=== PATIENT | male | born 1955 | race Caucasian/White ===

== ENCOUNTER 2018-01-23 01:53 | Inpatient (IN) | payer OTHER ==
[~2018-01-23] VITALS: Ht 182.9 cm; Wt 105.3 kg
[~2018-01-23 01:53] MED LIST: ALEVE220 MG PO; CIPROFLOXACIN500 M1 PO; FLOMAX PO; LEVAQUIN 500 M500 M2 PO
[2018-01-23] MEDS ORDERED: ALEVE220 MG PO (02:00)
[2018-01-23 02:17] LABS: ABSOLUTE BASOPHILS 0.1 thou/uL (0.0-0.2); ABSOLUTE EOSINOPHILS 0.5 thou/uL (0.0-0.7); ABSOLUTE LYMPHOCYTES 1.9 thou/uL (0.8-5.3); ABSOLUTE MONOCYTES 1.5 thou/uL (0.0-1.2); ABSOLUTE NEUTROPHILS 12.6 thou/uL (1.6-8.1); BASOPHILS 0.5 %; HEMATOCRIT 44.1 % (42.0-52.0); HEMOGLOBIN 14.6 gm/dL (14.0-18.0); LYMPHOCYTES 11.6 %; MCH 28.5 pg (26.0-34.0); MCHC 33.1 g/dL (28.0-37.0); MCV 86.1 fL (80.0-100.0); MONOCYTES 9.2 %; MPV 7.6 fl. (7.2-11.1); NUCLEATED RBCS 0 /100WBC; PLATELET COUNT* 405 thou/uL (150-400); POLYS 75.7 %; RBC 5.13 mil/uL (4.50-6.00); RDW-CV 17.1 % (10.5-14.5); WBC 16.6 thou/uL (4.0-11.0)
[2018-01-23 02:20] LABS: ANION GAP 8 mmol/L (7-16); BUN 20 mg/dL (7-18); CALCIUM 8.6 mg/dL (8.5-10.1); CHLORIDE 102 mmol/L (98-107); CO2 25 mmol/L (21-32); CREATININE 1.4 mg/dL (0.6-1.3); GLUCOSE 128 mg/dL (70-99); POTASSIUM 4.1 mmol/L (3.5-5.1); SODIUM 135 mmol/L (136-145)
[2018-01-23 02:31] LABS: APTT 37.8 Seconds (25.0-31.3); PROTIME 9.9 Seconds (9.20-11.50)
[2018-01-23 02:39] LABS: ALBUMIN 3.3 g/dL (3.4-5.0); ALKALINE PHOSPHATASE 108 U/L (46-116); CK-MB MASS 0.9 ng/mL (<0.5-3.6); LIPASE 158 U/L (73-393); MAGNESIUM 1.7 mg/dL (1.8-2.4); NT-PRO BRAIN NAT PEPTIDE 1700 pg/mL (<300); SGOT 14 U/L (15-37); SGPT 16 U/L (30-65); TOTAL BILIRUBIN 0.4 mg/dL (<0.1-1.0); TOTAL PROTEIN 7.9 g/dL (6.4-8.2); TROPONIN-I LEVEL <0.06 ng/mL (<0.06)
[2018-01-23 04:00] VITALS: BP 124/70
[2018-01-23 04:12] VITALS: BP 145/91
[2018-01-23 07:35] LABS: CHOLESTEROL 221 mg/dL (<200); HDL CHOLESTEROL 41 mg/dL (>40); LDL CHOLESTEROL 149 mg/dL (<100); TC:HDL 5.4 Ratio (Not establshd); TRIGLYCERIDE 155 mg/dL (<150); VLDL 31 mg/dL (<40)
[2018-01-23 07:45] LABS: SERUM ASSESSMENT Clear
[2018-01-23 12:00] VITALS: BP 133/69
--- NOTE | 2018-01-23 15:01 | EKG ---
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: CANDICE : 1955 Requested By: Tin Kumar Order Number: [id number] Reading MD: Christiano English Measurements Intervals [place] Rate: 89 P: 65 OK: 159 QRS: 55 QRSD: 111 T: 150 QT: 386 QTc: 470 Interpretive Statements Sinus rhythm Possible left atrial enlargement Low voltage, extremity leads Delayed R-wave progression Nonspecific T abnormalities, lateral leads Compared to ECG 06/04/2015 01:38:34 Low QRS voltage now present T-wave abnormality now present Electronically Signed On 01-23-2018 15:01:34 CDT by Christiano English [email or web address] <ELECTRONICALLY SIGNED> By: Christiano English MD, FACC 01/23/18 1501 0 0 Christiano English MD, FACC /EPI
--- NOTE | 2018-01-23 15:02 | EKG ---
[place] [address] ELECTROCARDIOGRAM REPORT Name: DELMIGAGE SÁNCHEZ Room: [address] ADM IN M.R.#: [id number] Admission: 01/23/18 Attend Phys: Ananda Riddle, Discharge: Date of : 51 Report #: [id number] THIS REPORT FOR: //name// [facility] Test Date: 2018-01-23 Test Time: 04:29:00 Pat Name: GAGE DAVID Department: Room: [facility] Gender: M Payment Poster: SHARMIN : 1955 Requested By: Tin Kumar Order Number: [id number] MD: Christiano English Measurements Intervals [place] Rate: 83 P: 74 MD: 156 QRS: 42 QRSD: 113 T: 142 QT: 406 QTc: 477 Interpretive Statements Sinus rhythm Borderline intraventricular conduction delay Low voltage, extremity leads Abnormal R-wave progression, late transition Nonspecific T abnormalities, lateral leads Borderline prolonged QT interval Compared to ECG 06/04/2015 01:38:34 Low QRS voltage now present T-wave abnormality now present Electronically Signed On 01-23-2018 15:02:24 CDT by Christiano English [email or web address] <ELECTRONICALLY SIGNED> By: Christiano English MD, FACC 01/23/18 1502 0429 Christiano English MD, FACC /EPI
--- NOTE | 2018-01-23 15:03 | EKG ---
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1955 Requested By: Ananda Riddle Order Number: [id number] [id number] MD: Christiano English Measurements Intervals [place] Rate: 90 P: 58 AL: 155 QRS: 29 QRSD: 107 T: 118 QT: 381 QTc: 467 Interpretive Statements Sinus rhythm Low voltage, extremity leads Nonspecific T abnormalities, lateral leads ST elevation, consider early repolarization Baseline wander in lead(s) V5 Compared to ECG 06/04/2015 01:38:34 Low QRS voltage now present T-wave abnormality now present ST (T wave) deviation now present Electronically Signed On 01-23-2018 15:03:32 CDT by Christiano English [email or web address] <ELECTRONICALLY SIGNED> By: Christiano English MD, FACC 01/23/18 1503 Christiano English MD, FACC /EPI
[2018-01-23 16:00] VITALS: BP 128/67
[2018-01-23 20:00] VITALS: BP 134/76
[2018-01-23 23:36] VITALS: BP 123/75
[2018-01-24 03:49] VITALS: BP 133/80
[2018-01-24 05:35] LABS: HEMATOCRIT 39.3 % (42.0-52.0); HEMOGLOBIN 12.9 gm/dL (14.0-18.0); MCH 28.3 pg (26.0-34.0); MCHC 32.9 g/dL (28.0-37.0); MCV 85.9 fL (80.0-100.0); MPV 7.7 fl. (7.2-11.1); RBC 4.57 mil/uL (4.50-6.00); RDW-CV 16.9 % (10.5-14.5)
[2018-01-24 05:54] LABS: ANION GAP 9 mmol/L (7-16); BUN 15 mg/dL (7-18); CALCIUM 9.1 mg/dL (8.5-10.1); CHLORIDE 105 mmol/L (98-107); CO2 24 mmol/L (21-32); CREATININE 0.9 mg/dL (0.6-1.3); GLUCOSE 191 mg/dL (70-99); MAGNESIUM 2.3 mg/dL (1.8-2.4); POTASSIUM 4.3 mmol/L (3.5-5.1); SODIUM 138 mmol/L (136-145); TROPONIN-I LEVEL <0.06 ng/mL (<0.06)
[2018-01-24 07:30] VITALS: BP 125/83
[2018-01-24 12:00] VITALS: BP 120/77
--- NOTE | 2018-01-24 14:31 | 2DMMODE ---
[place] [address] 2 D/M-MODE ECHOCARDIOGRAM Name: GAGE DAVID Room: [address] IN [facility]#: [id number] Admission: 01/23/18 Attend Phys: Ananda Dean Discharge: Date of : 51 Date of Service: 01/24/18 1431 Report #: [id number] THIS REPORT FOR: //name// APPROVED REPORT Study performed: 01/24/2018 11:18:55 EXAM: Comprehensive 2D, Doppler, and color-flow Echocardiogram Patient Location: In-Patient Room #: [facility] BSA: 2.43 HR: 94 bpm BP: 125/83 mmHg Other Information Study Quality: Good Indications Congestive Heart Failure CAD Chest Pain 2D Dimensions IVSd: 13.61 (7-11mm) LVOT Diam: 20.84 (18-24mm) LVDd: 68.62 mm PWd: 11.31 (7-11mm) Ascending Ao: 34.07 (22-36mm) LVDs: 43.48 (25-40mm) Aortic Root: 25.99 mm Volumes Left Atrial Volume (Systole) LA ESV Index: 26.00 mL/m2 Aortic Valve AoV Peak Bud.: 1.39 m/s AO Peak Gr.: 7.77 mmHg LVOT Max P.29 mmHg AO Mean Gr.: 4.43 mmHg LVOT Mean P.49 mmHg LVOT Max V: 0.91 m/s AO V2 VTI: 22.64 cm LVOT Mean V: 0.55 m/s ANTONY (VTI): 2.44 cm2 LVOT V1 VTI: 16.21 cm Mitral Valve E/A Ratio: 1.67 MV Decel. Time: 136.75 [place] [address] 2 D/M-MODE ECHOCARDIOGRAM Name: GAGE DAVID Room: [address] IN ..#: [id number] Admission: 01/23/18 Attend Phys: Ananda Dean Discharge: Date of : 51 Date of Service: 01/24/18 1431 Report #: [id number] MV E Max Bud.: 1.15 m/s MV PHT: 39.66 ms MVA (PHT): 5.55 cm2 TDI E/Lateral E': 14.38 E/Medial E': 19.17 Medial E' Bud.: 0.06 m/s Lateral E' Bud.: 0.08 m/s Pulmonary Valve PV Peak Bud.: 0.80 m/s PV Peak Gr.: 2.58 mmHg Tricuspid Valve RAP Estimate: 5.00 mmHg TR Peak Gr.: 29.45 mmHg RVSP: 34.45 mmHg PA Pressure: 34.45 mmHg Left Ventricle Left ventricle is moderately dilated. There is diffuse hypokinesis of left ventricular wall motion. There is normal left ventricular wall thickness. Left ventricular systolic function is moderate to severely decreased. LVEF is 30-35%. The left ventricular diastolic function is normal. Right Ventricle The right ventricle is normal size. The right ventricular systolic function is normal. Atria The left atrium size is normal. The right atrium size is normal. Aortic Valve The aortic valve is normal in structure. No aortic regurgitation is present. There is no aortic valvular stenosis. Mitral Valve The mitral valve is normal in structure. Mild mitral regurgitation. No evidence of mitral valve stenosis. Tricuspid Valve The tricuspid valve is normal in structure. Mild tricuspid regurgitation. Pulmonic Valve The pulmonary valve is normal in structure. [place] [address] 2 D/M-MODE ECHOCARDIOGRAM Name: GAGE DAVID Room: [address]#: [id number] Admission: 01/23/18 Attend Phys: Ananda Dean Discharge: Date of : 51 Date of Service: 01/24/18 1431 Report #: [id number] valvular regurgitation. Great Vessels The aortic root is normal in size. IVC is normal in size and collapses >50% with inspiration. Pericardium There is no pericardial effusion. <Conclusion> Left ventricle is moderately dilated. There is normal left ventricular wall thickness. Left ventricular systolic function is moderate to severely decreased. LVEF is 30-35%. The left ventricular diastolic function is normal. The right ventricle is normal size. The left atrium size is normal. The aortic valve is normal in structure. The mitral valve is normal in structure. Mild mitral regurgitation. The tricuspid valve is normal in structure. Mild tricuspid regurgitation. IVC is normal in size and collapses >50% with inspiration. There is no pericardial effusion. There is diffuse hypokinesis of left ventricular wall motion. <ELECTRONICALLY SIGNED> By: Jeremiah Rockwell MD, FACC 01/24/18 1431 143 143 Jeremiah Rockwell MD, FACC /INF
[2018-01-24 16:00] VITALS: BP 151/83
[2018-01-24] MEDS ORDERED: PREDNISONE 10 M10 MG PO (16:01)
[2018-01-24] MEDS ORDERED: AUGMENTIN 875-1 EACH PO (16:09)
[2018-01-24] MEDS ORDERED: PROTONIX40 M1 PO (16:09)
[2018-01-24] MEDS ORDERED: VENTOLIN HFA 1818 GM INH (16:10)
--- NOTE | 2018-01-24 18:07 | CON ---
[address] [address] CONSULTATION Name: GAGE DAVID Room: [address] IN M.R.#: [id number] Admission: 01/23/18 Attend Phys: Ananda Riddle, Discharge: Date of : 51 Report #: [id number] THIS REPORT FOR: //name// CC: HOANG physician/PCP Ananda Riddle DATE OF SERVICE: 01/23/2018 INDICATION: Chest pain. HISTORY OF PRESENT ILLNESS: The patient is a 62-year-old gentleman with a history of coronary artery disease with percutaneous coronary intervention and 2 stents placed in 2004 at [facility]. He has had no cardiac evaluation or intervention since that time. The patient presented with acute onset midsternal chest discomfort associated with shortness of breath that woke him from sleep at 01:00 in the morning. He presented to the Emergency Room at 02:15. EKG at that time showed sinus rhythm with some subtle ST elevation in the anterior leads that appears to be repolarization abnormality. Repeat EKGs have not shown any significant change. Initial troponin and followup troponins are less than 0.06. The patient was given nitroglycerin without relief of pain. He was given morphine without relief of pain. He states the pain is now more of a discomfort. The pain/discomfort has been persistent since 01:00 this morning. The pain is not worse with activity. The pain is not worse with deep breath. There are no reproducing factors. There are no alleviating factors. He denies any diaphoresis, nausea or vomiting. PAST MEDICAL HISTORY: 1. Coronary artery disease. 2. Chronic tobacco abuse. 3. Nephrolithiasis. 4. Osteoarthritis of both knees. 5. Seasonal arthritis. HOME MEDICATIONS: Aleve and Mucinex p.r.n. ALLERGIES: No drug allergies. SOCIAL HISTORY: The patient smokes a pack of cigarettes daily. He does not drink alcohol. He is . FAMILY HISTORY: Noncontributory. REVIEW OF SYSTEMS: A 14-point review of systems is positive for cough productive of clear sputum, history of pneumonia as a child. He reports chest discomfort, dyspnea and orthopnea as outlined above. He reports of murmur as a child. He reports an episode of lower extremity edema [place] [address] CONSULTATION Name: GAGE DAVID Room: [address] IN [facility].#: [id number] Admission: 01/23/18 Attend Phys: Ananda Riddle, Discharge: Date of : 51 Report #: [id number] reports seasonal allergies, but no medical allergies. He has arthritis without connective tissue disease. He wears reading glasses without acute visual change. A 14-point review of systems is otherwise unremarkable. PHYSICAL EXAMINATION: VITAL SIGNS: Blood pressure 145/91, pulse 89 and regular. GENERAL: This is a pleasant gentleman in no distress. Mood and affect appropriate. HEENT: O2 nasal cannula in place. Extraocular muscles intact. Mucous membranes are moist. NECK: Shows no jugular venous distention. There are no carotid bruits. CHEST: Reveals slight expiratory wheezes. Otherwise, lungs are clear. CARDIAC: Reveals a regular rhythm. I do not appreciate a gallop or murmur. ABDOMEN: Reveals normal bowel sounds. The abdomen is soft, nontender. EXTREMITIES: Shows no edema. Peripheral pulses are 2+ and easily palpable. SKIN: Warm and dry. LABORATORY DATA: A 12-lead EKG shows sinus rhythm with some subtle ST elevation in anterior leads. It appears to be repolarization abnormality. Labs are reviewed. Sodium 135, potassium 4.1, chloride 102, bicarbonate 25, BUN 20, creatinine 1.4, serum glucose 128. LFTs within normal limits. Troponin less than 0.06 on 2 separate occasions. NT-proBNP 1700. Total cholesterol 221, triglycerides 155, HDL 41, LDL 149. White blood cell count 16.6, hemoglobin 14.6, platelet count 405,000. CTA chest shows no evidence of pulmonary embolism. Chest x-ray shows no acute cardiopulmonary abnormality. IMPRESSION AND RECOMMENDATIONS: 1. Chest pain, doubt this represents an acute coronary syndrome as his troponin has remained unremarkable. I would recommend noninvasive stress testing and echocardiogram. 2. Hyperlipidemia. Recommend starting atorvastatin 40 mg daily. 3. Coronary artery disease, would recommend daily aspirin. Consider a beta-ezra twice daily. I would obtain echocardiogram to evaluate underlying left ventricular systolic function. 4. Chronic tobacco abuse. Smoking cessation discussed and advised. <ELECTRONICALLY SIGNED> By: Christiano English MD, FACC 01/24/18 1807 1050 [id number] English MD, FACC /nt
[2018-01-24 20:00] VITALS: BP 130/80
[2018-01-25] VITALS: BP 126/81
[2018-01-25 04:00] VITALS: BP 113/67
[2018-01-25 05:46] LABS: CALCIUM 8.7 mg/dL (8.5-10.1); CREATININE 0.8 mg/dL (0.6-1.3); POTASSIUM 4.6 mmol/L (3.5-5.1)
[2018-01-25 08:13] VITALS: BP 116/69
[2018-01-25 12:16] VITALS: BP 114/66
[2018-01-25 15:51] VITALS: BP 114/66
--- NOTE | 2018-01-25 16:39 | CARDNUC ---
[place] [address] CARDIAC NUCLEAR IMAGING REPORT Name: GAGE DAVID Room: [address] IN [facility]#: [id number] Admission: 01/23/18 Attend Phys: Ananda Dean Discharge: Date of : 51 Date of Service: 01/25/18 1639 Report #: [id number] THIS REPORT FOR: //name// APPROVED REPORT Imaging Protocol: Stress Tc-99m/Rest Tc-99m 2 days Study performed: 01/24/2018 12:19:00 Indication: Chest pain Patient Location: In-Patient Room #: 225 Stress Tech: Lor Garcia Stress Nurse: Anahi Braun RN NM Tech:ELDER Miranda Ht: 6 ft 0 in Wt: 261 lbs BSA: 2.39 m2 BMI: 35.39 Medical History Medical History: Angina, CAD s/p MT, CAD s/p stent, Current Smoker Medications: SoluMedrol Allergies: No known drug allergies Cardiac Risk Factors: Age, Current Smoker, Previous Cardiac Procedures: PCI, Myocardial infarction Exercise History: Indeterminate Physical Disabilities: Legs, Back Meds Held (24 hrs): None Resting Data Rest SPECT myocardial perfusion imaging was performed in supine position 30 minutes following the intravenous injection of 41.1 mCi of Tc-99m Sestamibi. Time of rest injection: 1150 Date: 01/25/2018 Time of rest imagin The images were gated to evaluate regional wall motion and calculate left ventricular ejection fraction. Administration Route: IV Pharmacologic Stress Pharmacologic stress test was performed by injecting Regadenoson 0.4 mg IV push over 10-15 seconds immediately followed by the intravenous injection of 42.0 mCi of Tc-99m Sestamibi. Time of stress injection: 1335 Date: 01/24/2018 [place] [address] CARDIAC NUCLEAR IMAGING REPORT Name: FRANKIEGAGE MARILEE Room: [address]#: [id number] Admission: 01/23/18 Attend Phys: Ananda Dean Discharge: Date of : 51 Date of Service: 01/25/18 1639 Report #: [id number] Administration Route: IV Administration Site: Left AC Gated Stress SPECT was performed 40 minutes after stress injection. The images were gated to evaluate regional wall motion and calculate left ventricular ejection fraction. Prone imaging was performed. Stress Test Details Stress Test: Pharmacologic stress testing performed using 0.4 mg of regadenoson per 5 mL given IV over 10 seconds. Reason for pharmacologic stress test: physical limitation. HR Max Heart Rate (APMHR): 156 bpm Resting HR: 85 bpm Target HR (85% APMHR): 132 bpm Max HR Achieved: 108 bpm % of APMHR: 69 Recovery HR: 94 bpm BP Resting BP: 128/83 mmHg Recovery BP: 135/69 mmHg ECG Resting ECG: Sinus Rhythm Stress ECG: Sinus Rhythm ST Change: None Arrhythmia: None Recovery ECG: Sinus Rhythm Recovery ST Change: None Recovery Arrhythmia: None Clinical Reason for Termination: Completed protocol Stress Symptoms: Dyspnea, Abdominal discomfort, Lightheaded Exercise duration: 0 min 0 sec Exercise capacity: 1.00 METs The patient tolerated Lexiscan infusion without significant symptoms. Nurse Comments Patient anxious about test, stated he was not happy about having to do this. Patient stated he was not walking on treadmill r/t leg and back pain, SOA on exertion. Sitting Lexiscan was tolerated by patient with minimal side effects noted previously. Side effects resolved with caffeine during recovery. Patient stable [place] [address] CARDIAC NUCLEAR IMAGING REPORT Name: GAGE DAVID Room: [address]#: [id number] Admission: 01/23/18 Attend Phys: Ananda Dean Discharge: Date of : 51 Date of Service: 01/25/18 1639 Report #: [id number] escorted with staff to Nuclear Medicine for images. Stress ECG Conclusion The baseline EKG show sinus rhythm with T-wave inversion in the inferolateral leads. EKGs obtained during and post Lexiscan infusion show sinus rhythm without significant ST segment or T wave changes when compared to baseline. There were no stress-induced arrhythmias. Study Quality Study: Good Study Data At rest, the left ventricular ejection fraction was 15%.. Post stress, the left ventricular ejection was 22%.. TID = 1.04. Perfusion There is a moderate size severe intensity fixed defect involving the mid to distal anterolateral wall. There is a large severe intensity defect involving the inferolateral wall that is fixed. No significant reversibility was identified. Wall Motion The left ventricle is dilated. The basal inferior and inferolateral wall is akinetic. Distal anterolateral wall is akinetic. There is global severe hypokinesis otherwise. Nuclear Conclusion ECG Findings: negative for ischemia Clinical Findings: negative for ischemia Nuclear Findings: negative for ischemia Exercise Capacity: not assessed Left Ventricular Function: abnormal Risk Study: high Perfusion images suggest infarct involving the mid to distal anterolateral wall as well as entire inferolateral wall. Left ventricular systolic function is severely decreased with underlying wall motion abnormalities as outlined above. This is a high risk study. <Conclusion> The baseline EKG show sinus rhythm with T-wave inversion in the inferolateral leads. EKGs obtained during [place] [address] CARDIAC NUCLEAR IMAGING REPORT Name: GAGE DAVID Room: [address] IN ..#: [id number] Admission: 01/23/18 Attend Phys: Ananda Dean Discharge: Date of : 51 Date of Service: 01/25/18 1639 Report #: [id number] show sinus rhythm without significant ST segment or T wave changes when compared to baseline. There were no stress-induced arrhythmias. <ELECTRONICALLY SIGNED> By: Christiano English MD, FACC 01/25/18 1639 38 163 Christiano English MD, FACC /INF
[2018-01-25 20:00] VITALS: BP 130/68
[2018-01-26] VITALS: BP 109/66
[2018-01-26 04:00] VITALS: BP 110/63; BP 121/82
[2018-01-26 08:20] VITALS: BP 110/80
[2018-01-26 12:00] VITALS: BP 114/73
--- NOTE | 2018-01-26 15:43 | CARD ---
[address] [address] CARDIAC CATH REPORT Name: GAGE DAVID Room: [address] IN ..#: [id number] Admission: 01/23/18 Attend Phys: Ananda Riddle, Discharge: Date of : 51 Report #: [id number] THIS REPORT FOR: //name// APPROVED REPORT Study performed: 01/26/2018 13:02:52 Patient Details Patient Status: In-Patient Room #: 225 The patient is a 62 year-old male Event Personnel Jeremiah Rockwell Business Representative, Jessica Kimble RN Demurrage Man, Melissa Ching Monitor, Tenzin Saldivar (R) Scrub Procedures Performed Art Access - R femoral artery* , Selective Right and Left Coronary Angiography, Left Heart Catheterization Indication Cardiomyopathy, Chest pain Risk Factors Hypercholesterolemia, Hypertension Previous Procedures/Diagnoses Previous PCI Procedure Narrative The patient was brought electively to the Cardiac Catheterization Laboratory and was prepped and draped in a sterile manner. The right femoral was infiltrated with 2% Lidocaine subcutaneous anesthesia. A Bristol 6 FR sheath was inserted into the LCA. Coronary angiography was performed using coronary diagnostic catheters. The right coronary system was accessed and visualized with a 6fr JR 4 catheter. The left coronary system was accessed and visualized with a 6fr JL 4 catheter. The left ventricle was accessed and visualized with a 6fr Pigtail catheter. Left ventricular/Aortic Valve gradient assessed via catheter pullback. Left ventriculogram was performed in RIZZO projection. Pre-demployment femoral angiogram was performed . Closure device was deployed with a 6 Fr MynxGrip 6/7F. The patient tolerated the procedure well and there were no complications associated with the procedure. There was no hematoma. Intra[place] [address] CARDIAC CATH REPORT Name: GAGE DAVID Room: [address]#: [id number] Admission: 01/23/18 Attend Phys: Ananda Riddle, Discharge: Date of : 51 Report #: [id number] Sedation start time: 13:37 Case end Time: 14:16 Fentanyl 25 mcg Versed 1 mg Fluoro Time: 3.1 minutes Dose: DAP 40403 cGycm2 1030.64 mGy Contrast Type and Amount: Visipaque 160 ml Diagnostic Cath Left Main 0% narrowing LAD 30% proximal narrowing with 75% mid vessel narrowing; there was 70% stenosis of the proximal portion of the prominent first diagonal branch Circumflex 100% proximal occlusion with left to left collaterals filling the distal circumflex in retrograde fashion Right Coronary Dominant vessel with subtotal occlusion proximally and 100% mid vessel occlusion with [id number] collaterals filling the distal right coronary artery through the interventricular septum Left Ventriculography The left ventricle is moderately dilated in size with contractility. The left ventricular ejection fraction is estimated to be 25%. Left ventricular wall motion abnormalities are present. There is no mitral insufficiency. The inferior wall appears predominantly akinetic with hypokinesis of remaining wall segments Hemodynamics The aortic pressure is 115/81 mmHg with a mean of mmHg. The left ventricular pressure is 112/9 mmHg with a mean of mmHg. The left ventricular end diastolic pressure is 20 mmHg. There was no gradient across the aortic valve upon pullback. Conclusion #1 severe coronary disease characterized by the following: A 30% proximal LAD narrowing with 75% mid vessel stenosis and 70% narrowing of the proximal portion of the first diagonal branch B non- dominant circumflex which is totally occluded proximally with left to left collaterals filling the distal circumflex in retrograde fashion C dominant right coronary artery with subtotal proximal and 100% mid vessel occlusion with [id number] collaterals filling the distal right coronary artery through [place] [address] CARDIAC CATH REPORT Name: GAGE DAVID Room: [address]#: [id number] Admission: 01/23/18 Attend Phys: Ananda Riddle, Discharge: Date of : 51 Report #: [id number] #2 modest elevation of left ventricular end-diastolic pressure at rest 3 severe reduction in global left ventricular systolic function, estimated ejection fraction being 25% with akinesis of a large portion of the inferior wall and hypokinesis of remaining wall segments Recommendations Cardiac Risk Reduction Program Aggressive Medical Therapy Diagnostic Cath Approved by: Jeremiah Rockwell MD Date/Time: 01/26/2018 15:42:27 <ELECTRONICALLY SIGNED> By: Jeremiah Rockwell MD, [facility] 01/26/18 1543 1543 1543Jeremiah Rockwell MD, FACC /INF
[2018-01-26 20:00] VITALS: BP 117/75
[2018-01-27] VITALS (13 sets, daily range): BP systolic 103–198; BP diastolic 69–88
[2018-01-27 04:43] LABS: ABSOLUTE LYMPHOCYTES 1.5 thou/uL (0.8-5.3); ABSOLUTE MONOCYTES 1.2 thou/uL (0.0-1.2); ABSOLUTE NEUTROPHILS 9.9 thou/uL (1.6-8.1); BASOPHILS 0.2 %; HEMATOCRIT 44.3 % (42.0-52.0); HEMOGLOBIN 14.3 gm/dL (14.0-18.0); LYMPHOCYTES 11.7 %; MCH 27.8 pg (26.0-34.0); MCHC 32.3 g/dL (28.0-37.0); MCV 86.2 fL (80.0-100.0); MONOCYTES 9.2 %; MPV 7.7 fl. (7.2-11.1); NUCLEATED RBCS 0 /100WBC; POLYS 78.9 %; RBC 5.14 mil/uL (4.50-6.00); RDW-CV 16.6 % (10.5-14.5); WBC 12.6 thou/uL (4.0-11.0)
[2018-01-27 04:53] LABS: CALCIUM 8.9 mg/dL (8.5-10.1); CREATININE 0.9 mg/dL (0.6-1.3); POTASSIUM 5.2 mmol/L (3.5-5.1)
[2018-01-27 05:40] LABS: PLATELET COUNT* 531 thou/uL (150-400)
--- NOTE | 2018-01-27 14:01 | EKG ---
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1955 Requested By: Christiano English Order Number: [id number] Amie MD: Jeremiah Rockwell Measurements Intervals [place] Rate: 86 P: ID: QRS: 10 QRSD: 119 T: 196 QT: 418 QTc: 500 Interpretive Statements Atrial fibrillation Borderline low voltage, extremity leads Possible left ventricular hypertrophy Abnormal T, consider ischemia, lateral leads Compared to ECG 01/23/2018 08:36:05 Possible ischemia now present Sinus rhythm no longer present ST (T wave) deviation no longer present T-wave abnormality still present Electronically Signed On 01-27-2018 14:01:24 CDT by Jeremiah Rockwell [email or web address] <ELECTRONICALLY SIGNED> By: Jeremiah Rockwell MD, FACC 01/27/18 1401 7 7 Jeremiah Rockwell MD, FACC /EPI
[2018-01-28] VITALS: BP 98/67
[2018-01-28 04:00] VITALS: BP 107/72
[2018-01-28 07:40] VITALS: BP 105/67
[2018-01-28 09:02] VITALS: BP 105/67
[2018-01-28] MEDS ORDERED: LISINOPRIL5 MG PO (11:52)
[2018-01-28] MEDS ORDERED: CARVEDILOL3.125 MG PO (11:53)
[2018-01-28] MEDS ORDERED: XARELTO20 MG PO (11:54)
[2018-01-28] MEDS ORDERED: LIPITOR 40 MG T40 M1 PO (11:55)
[2018-01-28] MEDS ORDERED: PACERONE 200 M200 M1 PO (12:00)
[2018-01-28] MEDS ORDERED: LASIX 40 MG TAB40 M2 PO (12:02)
[2018-01-28] MEDS ORDERED: AUGMENTIN 875-1 EACH PO (12:04)
[2018-01-28] MEDS ORDERED: VENTOLIN HFA 1818 GM INH (12:06)
[2018-01-28] MEDS ORDERED: PREDNISONE 10 M10 MG PO (12:08)
--- NOTE | 2018-02-09 08:42 | CARD ---
[address] [address] CARDIAC CATH REPORT Name: GAGE DAVID Room: [address] IN [facility]#: [id number] Admission: 01/23/18 Attend Phys: Ananda Riddle, Discharge: 01/28/18 Date of : 51 Report #: [id number] THIS REPORT FOR: //name// CC: [facility] physician/PCP Ananda Riddle DATE OF SERVICE: 01/27/2018 TYPE OF REPORT: Cardiac procedure. INDICATION: Persistent atrial fibrillation. PROCEDURE: DC cardioversion. DESCRIPTION OF PROCEDURE: After informed consent was obtained, the patient was brought to the cardiac catheterization lab. The patient was given intravenous Versed and fentanyl for conscious sedation. Once the patient was adequately sedated, he was shocked with a single biphasic shock of 300 joules. He attained normal sinus rhythm. The patient tolerated procedure well and without complication. The patient was returned to his room in stable condition. IMPRESSION: 1. Persistent atrial fibrillation. 2. Successful direct current cardioversion to normal sinus rhythm. <ELECTRONICALLY SIGNED> By: Christiano English MD, FACC 02/09/18 0842 1817 [id number] English MD, FACC /nt
== END 2018-01-28 13:15 | disposition home or self-care (01) | DRG 286 ==
LOC: M.ERS 01:53 → M.TBA-ER 03:11 → M.2W 03:11
PROVIDERS: Family Medicine; Internal Medicine; Internal Medicine Cardiovascular Disease; ADMIT Family Medicine
PROC: 5A2204Z Restoration of Cardiac Rhythm, Single (ICD-10-PCS; principal; 2018-01-26)
PROC: B24BZZ4 Ultrasonography of Heart with Aorta, Transesophageal (ICD-10-PCS; principal; 2018-01-26)
PROC: B211YZZ Fluoroscopy of Multiple Coronary Arteries using Other Contrast (ICD-10-PCS; principal; 2018-01-26)
PROC: 4A023N7 Measurement of Cardiac Sampling and Pressure, Left Heart, Percutaneous Approach (ICD-10-PCS; principal; 2018-01-26)
PROC: B215YZZ Fluoroscopy of Left Heart using Other Contrast (ICD-10-PCS; principal; 2018-01-26)
DX: I11.0 Hypertensive heart disease with heart failure (principal); J15.6 Pneumonia due to other Gram-negative bacteria; J96.01 Acute respiratory failure with hypoxia; I50.43 Acute on chronic combined systolic (congestive) and diastolic (congestive) heart failure; M19.90 Unspecified osteoarthritis, unspecified site; I25.10 Atherosclerotic heart disease of native coronary artery without angina pectoris; M17.0 Bilateral primary osteoarthritis of knee; F17.210 Nicotine dependence, cigarettes, uncomplicated; E78.5 Hyperlipidemia, unspecified; I25.5 Ischemic cardiomyopathy; I48.91 Unspecified atrial fibrillation; I25.2 Old myocardial infarction; Z95.5 Presence of coronary angioplasty implant and graft; Z87.442 Personal history of urinary calculi; Z98.52 Vasectomy status; Z23 Encounter for immunization; Z79.899 Other long term (current) drug therapy

== ENCOUNTER → 2018-06-22 | Outpatient (CLI) | payer OTHER, MEDICARE ==
[~2018-06-22] MED LIST changes: +AUGMENTIN 875-1 EACH PO; +CARVEDILOL3.125 MG PO; +LASIX 40 MG TAB40 M2 PO; +LIPITOR 40 MG T40 M1 PO; +LISINOPRIL5 MG PO; +PACERONE 200 M200 M1 PO; +PREDNISONE 10 M10 MG PO; +PROTONIX40 M1 PO; +VENTOLIN HFA 1818 GM INH; +XARELTO20 MG PO
== END ==
LOC: M.RAD 11:35
DX: I50.42 Chronic combined systolic (congestive) and diastolic (congestive) heart failure (principal); R05 Cough

== ENCOUNTER 2018-08-23 14:14 | Inpatient (IN) | payer OTHER, MEDICARE ==
[2018-08-23] VITALS (8 sets, daily range): BP systolic 109–128; BP diastolic 48–62
[~2018-08-23] VITALS: Ht 182.9 cm; Wt 126.6 kg
--- NOTE | ~2018-08-23 | CON ---
[address] [address] CONSULTATION Name: GAGE DAVID Room: [address] IN .R.#: [id number] Admission: 08/23/18 Attend Phys: Bassam Al MD Discharge: Date of : 51 Report #: [id number] THIS REPORT FOR: //name// CC: Nigel Hernández [facility] physician/PCP Bassam Al DATE OF SERVICE: 08/24/2018 HISTORY OF PRESENT ILLNESS: A 63-year-old gentleman with past medical history significant for coronary artery disease, atrial fibrillation, CHF on Xarelto, who is presenting with weakness and fatigue. The patient reports that since the weekend, he began feeling weak, lightheaded and his reports that he began looking pale. The patient reports on Wednesday and Wednesday, he had two large bowel movements, which were black in color. The patient reports they were formed. The patient has not had any bowel movements since then. He denies any abdominal pain, nausea, vomiting, diarrhea, hematemesis or harjeet hematochezia. The patient has never had an endoscopic evaluation either EGD or colonoscopy in the past. PAST MEDICAL HISTORY: CHF, hypertension, atrial fibrillation. PAST SURGICAL HISTORY: The patient has had umbilical hernia repair in the past. SOCIAL HISTORY: The patient quit smoking last January, but prior to that, has a [id number]-ksct smoking history. He denies alcohol or recreational drug use. FAMILY HISTORY: There is no family history of esophageal, gastric or colonic malignancies. REVIEW OF SYSTEMS: Negative except for what was mentioned in the HPI. PHYSICAL EXAMINATION: VITAL SIGNS: Temperature 37.1, pulse rate 69, blood pressure 122/64, pulse ox 98% on room air. GENERAL: The patient is alert, awake, oriented x 3. HEENT: Pupils are equal, round, reactive to light and accommodation. Mucous membranes are moist. NECK: There is no congestion. LUNGS: Clear to auscultation bilaterally. CARDIOVASCULAR: Irregularly irregular. ABDOMEN: Soft. There is no guarding or rigidity. Bowel sounds are present. EXTREMITIES: Warm and well perfused. There is 2+ pitting edema bilaterally. SKIN: Warm and dry. LABORATORY DATA: Hemoglobin 6.8 on presentation, 7.6 [place] [address] CONSULTATION Name: GAGE DAVID Room: [address] IN [facility].#: [id number] Admission: 08/23/18 Attend Phys: Bassam Al MD Discharge: Date of : 51 Report #: [id number] patient's baseline hemoglobin is 14.3. Chemistry: Sodium 141, potassium 3.9, chloride 106, bicarbonate 26, BUN 25, creatinine 1.1. INR 1.0. ASSESSMENT AND PLAN: A pleasant 63-year-old gentleman with past medical history significant for hypertension, atrial fibrillation and congestive heart failure who is presenting for evaluation of lightheadedness and dark stools. The patient was found to have profoundly low hemoglobin of 6.8 compared to 14, which is his baseline. He does report two dark colored stools. The patient has never had an EGD or colonoscopy in the past. The patient has been started on a Protonix drip. He has been n.p.o. since last night. We will proceed with an EGD to evaluate further the source of bleeding. Further recommendations will be based on the EGD. By: [id number] Hyde MD /nt
[2018-08-23 16:24] LABS: ABSOLUTE EOSINOPHILS 0.8 thou/uL (0.0-0.7); ABSOLUTE LYMPHOCYTES 2.1 thou/uL (0.8-5.3); ABSOLUTE MONOCYTES 0.8 thou/uL (0.0-1.2); BASOPHILS 0.5 %; EOSINOPHILS 9.1 %; HEMATOCRIT 20.4 % (42.0-52.0); MCH 30.1 pg (26.0-34.0); MCHC 33.5 g/dL (28.0-37.0); MCV 89.9 fL (80.0-100.0); MONOCYTES 9.4 %; MPV 6.8 fl. (7.2-11.1); NUCLEATED RBCS 0 /100WBC; PLATELET COUNT* 349 thou/uL (150-400); RBC 2.27 mil/uL (4.50-6.00); RDW-CV 14.3 % (10.5-14.5); WBC 8.8 thou/uL (4.0-11.0)
[2018-08-23 16:29] LABS: APTT 33.5 Seconds (25.0-31.3); PROTIME 10.6 Seconds (9.20-11.50)
[2018-08-23 16:31] LABS: HEMOGLOBIN 6.8 gm/dL (14.0-18.0)
[2018-08-23 16:41] LABS: CK-MB MASS 3.9 ng/mL (<0.5-3.6)
[2018-08-23 16:43] LABS: TROPONIN-I LEVEL 1.38 ng/mL (<0.06)
[2018-08-23 16:48] LABS: ALBUMIN 2.6 g/dL (3.4-5.0); CALCIUM 8.2 mg/dL (8.5-10.1); CREATININE 1.2 mg/dL (0.6-1.3); TOTAL BILIRUBIN 0.4 mg/dL (<0.1-1.0); TOTAL PROTEIN 5.7 g/dL (6.4-8.2)
--- NOTE | 2018-08-23 18:00 | NUR ---
PT RECEIVED FROM [facility] ER AT 1520, ALERT AND ORIENTED X4. VSS. O2 SATS >92% IN RA. ADMISSION PROCESS COMPLETED. TOLERATING CLEAR LIQUID DIET. PLAN FOR 1 UNIT OF BLOOD TRANSFUSION.
[2018-08-23 21:24] LABS: URINE BILIRUBIN NEGATIVE (Negative); URINE BLOOD NEGATIVE (Negative); URINE CLARITY CLEAR; URINE COLOR YELLOW; URINE GLUCOSE-RANDOM NEGATIVE (Negative); URINE KETONES NEGATIVE (Negative); URINE LEUKOCYTES-REFLEX NEGATIVE (Negative); URINE NITRITE-REFLEX NEGATIVE (Negative); URINE PROTEIN NEGATIVE (Negative); URINE SPECIFIC GRAVITY 1.025 (1.005-1.030); URINE UROBILINOGEN 0.2 E.U./dl (0.2-1.0)
[2018-08-24] VITALS (18 sets, daily range): BP systolic 100–133; BP diastolic 47–90
[2018-08-24 01:31] LABS: HEMATOCRIT 21.9 % (42.0-52.0); HEMOGLOBIN 7.6 gm/dL (14.0-18.0); MCH 30.6 pg (26.0-34.0); MCHC 34.5 g/dL (28.0-37.0); MCV 88.8 fL (80.0-100.0); MPV 6.9 fl. (7.2-11.1); RBC 2.47 mil/uL (4.50-6.00); RDW-CV 14.9 % (10.5-14.5); WBC 9.4 thou/uL (4.0-11.0)
[2018-08-24 01:45] LABS: CALCIUM 7.9 mg/dL (8.5-10.1); CREATININE 1.1 mg/dL (0.6-1.3); MAGNESIUM 1.9 mg/dL (1.8-2.4); POTASSIUM 3.9 mmol/L (3.5-5.1)
--- NOTE | 2018-08-24 05:03 | NUR ---
PT. PROGRESSING TOWARDS GOALS. HGB 7.6 THIS A.M. AFTER 1 UNIT TRANSFUSED. TROPONIN TRENDING DOWN, NOW 0.92. VITAL SIGNS WITHIN NORMAL LIMITS. NO COMPLAINTS OF PAIN, DENIED CHEST PAIN THROUGHOUT SHIFT. URINAL TO VOID. CALL LIGHT REMAINS IN REACH, WILL CONTINUE TO MONITOR.
[2018-08-24] MEDS ORDERED: MULTAQ400 MG PO (09:54)
--- NOTE | 2018-08-24 10:25 | NUR ---
CHART REVIEWED, SPOKE WITH PT. PT LIVES AT HOME WITH HIS , HAS BEEN ACTIVE AND INDEP. PT DENIES ANY DISCHARGE NEEDS. PT TO HAVE EGD THIS MORNING. DISCUSSED ROLE OF CASE MGT, WILL CONTINUE TO FOLLOW.
--- NOTE | 2018-08-24 10:37 | NUR ---
PT A/O X'S 4. PT REPORTS NO BM FOR 2 DAYS. LAST BM 08/22/18. PT M/S TELE. HG 7.6. RECEIVED ORDER FOR BLOOD TRANSFUSION AND FOR HEMOGLOBIN TO BE AT 8. BLOOD TRANSFUSING. NO S/S OF ADVERSE REACTIONS. PT EDEMATOUS IN HANDS AND FEET. PT REPORTS AT HOME USING PILLOWS TO ELEVATE ARMS. PILLOWS PLACED BILATERALLY UNDER ARMS. PT TO HAVE EGD THIS AM.
[2018-08-24 13:40] LABS: HEMATOCRIT 25.7 % (42.0-52.0); HEMOGLOBIN 8.8 gm/dL (14.0-18.0)
--- NOTE | 2018-08-24 18:41 | NUR ---
PATIENT STARTED PREP FOR COLONOSCOPY TOMORROW, PER DR JAEGER THE PROCEDURE WILL BE AROUND 1300. ALL QUESTIONS ANSWERED. CLEAR LIQUIDS FOR DINNER AND NPO AT MIDNIGHT. NO OTHER CONCERNS AT THIS TIME. BED IN LOWEST POSTITION, FISH SEINER IN PLACE. CALL LIGHT IN REACH.
[2018-08-25] VITALS: BP 116/70
[2018-08-25 04:00] VITALS: BP 126/71
[2018-08-25 05:01] LABS: HEMATOCRIT 24.9 % (42.0-52.0); HEMOGLOBIN 8.8 gm/dL (14.0-18.0); MCH 31.2 pg (26.0-34.0); MCHC 35.2 g/dL (28.0-37.0); MCV 88.5 fL (80.0-100.0); MPV 6.9 fl. (7.2-11.1); RBC 2.81 mil/uL (4.50-6.00); RDW-CV 15.4 % (10.5-14.5); WBC 9.3 thou/uL (4.0-11.0)
[2018-08-25 05:10] LABS: CALCIUM 8.5 mg/dL (8.5-10.1); CREATININE 1.1 mg/dL (0.6-1.3); POTASSIUM 4.1 mmol/L (3.5-5.1)
--- NOTE | 2018-08-25 06:50 | NUR ---
ASSUMED PT CARE AT 1930. 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 PT FINISHED BOWEL PREP BY 2200. ADMINISTERED 2 ENEMAS THIS MORNING. HOURLY ROUNDING COMPLETED. PT VOICED NO CONCERNS, CALL LIGHT WITHIN REACH. PT REMAINS NPO FOR COLONOSCOPY.
[2018-08-25 07:35] VITALS: BP 123/66
--- NOTE | 2018-08-25 08:45 | NUR ---
REC'D REPORT FROM NOC RN, ASSUMED CARE OF PATIENT APPROX 0730. A&OX4, ABLE TO COMMUNICATE NEEDS TO STAFF. ASSESSMENT COMPLETED, VS OBTAINED. KNOCKDOWN WORKER IN PLACE, SR. O2 SATS 96% RA. UP AD GLORIA IN ROOM. BM IS WATER TINGED WITH COFFEE GROUND COLOR. REVIEWED THIS FINDING WITH GI RACE STEWARD WHO STATES THAT IS USUAL FINDING WITH POSSIBLE BLEED. NO FURTHER NEED FOR ENEMA PER GI RACE STEWARD. CALL LIGHT WITHIN REACH. HOURLY ROUNDING FOR SAFETY AND PATIENT NEEDS.
[2018-08-25] MEDS ORDERED: PROTONIX40 M1 PO (08:54)
--- NOTE | 2018-08-25 09:02 | CON ---
[address] [address] CONSULTATION Name: GAGE DAVID Room: [address] IN M.R.#: [id number] Admission: 08/23/18 Attend Phys: Bassam Al MD Discharge: Date of : 51 Report #: [id number] THIS REPORT FOR: //name// CC: Nigel Hernández [facility] physician/PCP Bassam Al CARDIOLOGY CONSULTATION INDICATION: Elevated troponin in the setting of acute anemia with GI bleed. HISTORY OF PRESENT ILLNESS: The patient is a very pleasant 63-year-old gentleman well known to myself. He has a history of an ischemic cardiomyopathy with an ejection fraction of 35%. By catheterization, he has a patent LAD that fills the occluded certain right coronary arteries by left to left collaterals. He also has a history of paroxysmal atrial fibrillation and had been on Xarelto 20 mg daily. He has noted dark stools for the last 3 days. He has had progressive fatigue as well. He has also noted increasing lower extremity swelling and shortness of breath. He is not having harjeet chest pain, but reports a chest pressure. The patient was seen at outside hospital and found to be acutely anemic. In this setting, he had an elevated troponin. The patient was transferred to [facility] for further treatment. His hemoglobin was 6.8. His troponin in the setting was 1.38. EKG shows sinus rhythm without acute ST or T-wave abnormality. He is without other cardiac complaint at this time. PAST MEDICAL HISTORY: 1. Ischemic cardiomyopathy as outlined above. 2. Paroxysmal atrial fibrillation. 3. Chronic anticoagulation for paroxysmal atrial fibrillation. 4. Hyperlipidemia. 5. History of tobacco abuse. 6. Chronic combined heart failure. 7. History of nephrolithiasis. ALLERGIES: None documented. HOME MEDICATIONS: Furosemide 40 mg p.o. every day, amiodarone 200 mg p.o. every day, atorvastatin 40 mg p.o. at bedtime, Xarelto 20 mg p.o. at bedtime, carvedilol 3.125 mg p.o. b.i.d., lisinopril 5 mg p.o. daily, Protonix 40 mg p.o. daily, albuterol inhaler q. 6 hours p.r.n., prednisone 10 mg p.o. daily, Augmentin 875/125 one tablet p.o. b.i.d. FAMILY HISTORY: Noncontributory. SOCIAL HISTORY: The patient continues to smoke and drinks [place] [address] CONSULTATION Name: GAGE DAVID Room: [address]#: [id number] Admission: 08/23/18 Attend Phys: Bassam Al MD Discharge: Date of : 51 Report #: [id number] PHYSICAL EXAMINATION: VITAL SIGNS: Stable. GENERAL: This is a pleasant gentleman who is in no distress. Mood and affect appropriate. HEENT: Extraocular muscles intact. Mucous membranes moist. NECK: Shows no jugular venous distention. CHEST: Reveals clear lung mark without wheezes or rales. CARDIOVASCULAR: Reveals a regular rhythm with a soft grade 1-2/6 systolic ejection murmur. ABDOMEN: Reveals a protuberant abdomen, somewhat firm, but nontender. Bowel sounds present. EXTREMITIES: Shows 2-3+ pitting edema to the knees bilaterally. SKIN: Dry. LABORATORY DATA: EKG shows sinus rhythm without acute ST or T-wave abnormality. CBC shows a white blood cell count of 8.8; hemoglobin 6.8; platelet count 349,000. Chemistry showed normal electrolytes. BUN 27, creatinine 1.2, serum glucose 103. LFTs are within normal limits. Initial troponin is 1.38 with followup troponin is pending. NT-proBNP was 982. Chest x-ray ordered and pending. IMPRESSION AND RECOMMENDATIONS: 1. Acute gastrointestinal bleed that appears to be apparent nature. Agree with holding Xarelto until GI evaluation completed. 2. Ischemic cardiomyopathy, somewhat decompensated at this point in time. We will switch to IV Lasix and follow I's and O's. 3. Acute on chronic combined heart failure, multifactorial in nature. The patient has been monitoring fluid and sodium intake at home; however, in the setting of profound anemia, I believe he is having exacerbation of his heart failure. We will require intensive diuresis and careful observation of I's and O's. 4. Coronary artery disease. Presently, he is having elevated troponin due to demand ischemia. I do not believe this represents acute coronary syndrome. We will reevaluate with echocardiogram. 5. Ischemic cardiomyopathy with heart failure. The patient is on a regimen of low dose of carvedilol and lisinopril. We will try to continue as tolerated in the hospital and possibly titrate if blood pressure tolerates. 6. Paroxysmal atrial fibrillation, presently maintaining sinus rhythm on amiodarone. We will need to hold Xarelto at this time as he is having acute gastrointestinal bleed. <ELECTRONICALLY SIGNED> By: Christiano English MD, [facility] 08/25/18 0902 1709 [facility]7Martha Dmitri English MD, FACC /nt
[2018-08-25 11:27] VITALS: BP 130/73
[2018-08-25 12:48] LABS: HEMATOCRIT 27.2 % (42.0-52.0); HEMOGLOBIN 9.1 gm/dL (14.0-18.0)
[2018-08-25 15:58] VITALS: BP 113/54
--- NOTE | 2018-08-25 16:00 | NUR ---
PATIENT RETURNED TO ROOM FROM PACU. COLONOSCOPY COMPLETED. A&OX4, ABLE TO COMMUNICATE NEEDS TO STAFF. 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 ORDERS REVIEWED. CONSUMED BOXED LUNCH. MYLES WELL. AT BS.
--- NOTE | 2018-08-25 18:48 | NUR ---
FAXED FACE SHEET TO CARDIOLOGY TO INFORM THAT PATIENT WILL NEED A FOLLOW UP APPT WITHIN 7 DAYS OF DC. FAX SUBISSION CONFIRMED.
--- NOTE | 2018-08-25 18:50 | NUR ---
PATIENT HAS BEEN CLEARED BY GI PHYSICIAN TO DISCHARGE. COMPLETE DISCHARGE ORDER PENDING GI RELEASE PER DR. PIEDRA. DISCHARGE INSTRUCTIONS REVIEWED WITH PATIENT AND SPOUSE. ANSWERED ALL QUESTIONS TO PATIENT SATISFACTION. TECHNICAL SALES ADVISOR AND IV DISCONTINUED. PATIENT IN POSSESSION OF ALL BELONGINGS. PATIENT OFF UNIT VIA WHEELCHAIR AND NURSING STAFF. SPOUSE TO TRANSPORT PATIENT TO HOME VIA PERSONAL VEHICLE.
[2018-08-25 19:22] VITALS: BP 113/54
== END 2018-08-25 20:09 | disposition home or self-care (01) | DRG 377 ==
LOC: M.ICU 14:14 → M.2W 15:15 → M.ICU 15:15 → M.2W 08-24 17:05
PROVIDERS: ADMIT Internal Medicine
PROC: 30233N1 Transfusion of Nonautologous Red Blood Cells into Peripheral Vein, Percutaneous Approach (ICD-10-PCS; principal; 2018-08-23)
PROC: 0DJ08ZZ Inspection of Upper Intestinal Tract, Via Natural or Artificial Opening Endoscopic (ICD-10-PCS; 2018-08-24)
PROC: 0DJD8ZZ Inspection of Lower Intestinal Tract, Via Natural or Artificial Opening Endoscopic (ICD-10-PCS; 2018-08-25)
DX: K92.2 Gastrointestinal hemorrhage, unspecified (principal); I21.A1 Myocardial infarction type 2; N17.0 Acute kidney failure with tubular necrosis; I50.43 Acute on chronic combined systolic (congestive) and diastolic (congestive) heart failure; D62 Acute posthemorrhagic anemia; I42.9 Cardiomyopathy, unspecified; I48.0 Paroxysmal atrial fibrillation; E78.5 Hyperlipidemia, unspecified; F17.210 Nicotine dependence, cigarettes, uncomplicated; G47.33 Obstructive sleep apnea (adult) (pediatric); M12.80 Other specific arthropathies, not elsewhere classified, unspecified site; I25.10 Atherosclerotic heart disease of native coronary artery without angina pectoris; K21.0 Gastro-esophageal reflux disease with esophagitis; K44.9 Diaphragmatic hernia without obstruction or gangrene; M06.9 Rheumatoid arthritis, unspecified; Z79.01 Long term (current) use of anticoagulants; Z87.442 Personal history of urinary calculi; Z79.899 Other long term (current) drug therapy

== ENCOUNTER → 2018-09-20 | Outpatient (CLI) | payer OTHER, MEDICARE ==
[~2018-09-20] VITALS: Ht 182.9 cm; Wt 119.7 kg
[~2018-09-20] MED LIST changes: +BREO ELLIPTA 11 EACH INH; +LOSARTAN POTASS50 MG; +MULTAQ400 MG PO
[2018-09-20 08:24] VITALS: BP 115/59
[2018-09-20 08:44] LABS: HEMATOCRIT 32.9 % (42.0-52.0); MCH 27.2 pg (26.0-34.0); MCHC 33.4 g/dL (28.0-37.0); MCV 81.5 fL (80.0-100.0); MPV 6.9 fl. (7.2-11.1); RBC 4.04 mil/uL (4.50-6.00); RDW-CV 15.4 % (10.5-14.5); WBC 9.4 thou/uL (4.0-11.0)
[2018-09-20 09:02] LABS: CALCIUM 8.9 mg/dL (8.5-10.1); CREATININE 1.2 mg/dL (0.6-1.3); POTASSIUM 4.2 mmol/L (3.5-5.1)
[2018-09-20 09:05] LABS: APTT 35.6 Seconds (25.0-31.3); PROTIME 10.1 Seconds (9.20-11.50)
[2018-09-20 09:07] LABS: ALBUMIN 3.1 g/dL (3.4-5.0); TOTAL BILIRUBIN 0.5 mg/dL (<0.1-1.0); TOTAL PROTEIN 7.8 g/dL (6.4-8.2)
[2018-09-20 11:23] VITALS: BP 126/57
[2018-09-20 11:46] VITALS: BP 120/68
--- NOTE | 2018-09-20 15:44 | EKG ---
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1955 Requested By: Christiano English Order Number: [id number] Reading MD: Christiano English Measurements Intervals [place] Rate: 59 P: 45 [place]: 172 QRS: 32 QRSD: 113 T: 90 QT: 467 QTc: 463 Interpretive Statements Sinus rhythm Borderline intraventricular conduction delay Low voltage, extremity leads Compared to ECG 01/27/2018 13:09:14 T-wave abnormality no longer present Electronically Signed On 09-20-2018 15:44:06 CDT by Christiano English [email or web address] <ELECTRONICALLY SIGNED> By: Christiano English MD, [facility] 09/20/18 1544 0943 0943 Christiano English MD, [facility] /EPI
--- NOTE | 2018-09-20 16:03 | CARD ---
[address] [address] CARDIAC CATH REPORT Name: GAGE DAVID Room: [facility] Di#: [id number] Admission: 09/20/18 Attend Phys: Christiano English MD Discharge: Date of : 51 Report #: [id number] THIS REPORT FOR: //name// APPROVED REPORT Study performed: 09/20/2018 09:01:59 Patient Status: Out-Patient Room #: Event Personnel: Christiano English House Wirer, Faustina Gonzalez RN RN, Bassam Masters SKI TECHNICIAN Monitor, Bola Mcnamara SKI TECHNICIAN Scrub Exam: insertion of a dual-chamber pacing ICD. The patient is a 63 year-old male with a history of ischemic cardiomyopathy. Patient Info Last EF%: 30-35% Date: January 2018 NYHA Heart Class: II Reason for implant: Primary prevention Intraoperative Conscious Sedation Fentanyl 75.0 mcg Versed 2.0 mg Implanted Devices: Biotronik Ilivia 7 DRT, model #240077, serial #[id number] dual-chamber pacing ICD generator. Biotronik Soliay S 53, model #949180, serial #[id number] atrial lead. Biotronik Pleax ProMRI S 65, model #041640, serial #[id number] RV pacing defibrillator wire. Procedure After informed consent was obtained the patient was brought to the cardiac catheterization lab. The area of the left chest was prepped and draped in sterile fashion. Local anesthesia was achieved with 1% lidocaine. Next after an initial incision was made a device pocket was formed over the left pectoralis muscle using electrocautery and blunt dissection. Next using a micropuncture kit the left subclavian vein was accessed and a safety J guidewire advanced to the right atrium under fluoroscopic guidance. The guidewire was externally fixed with a Haritha forcep. Utilizing the micropuncture kit a second time the left subclavian vein was again accessed. A second safety J guidewire was advanced to the right atrium under fluoroscopic guidance. An 8 Arabic tear-away introducer was advanced over the guidewire. The dilator and guidewire were removed and the RV pacing ICD lead advanced to a secure position within the RV apex[place] [address] CARDIAC CATH REPORT Name: GAGE DAVID Room: [facility]#: [id number] Admission: 09/20/18 Attend Phys: Christiano English MD Discharge: Date of : 53 Report #: [id number] was actively fixed. Thresholds were checked and deemed to be satisfactory. Sensing was adequate. There was no diaphragmatic stimulation with maximum output pacing. Next a 6 Arabic tear-away introducer was advanced over the remaining guidewire. The dilator and guidewire were removed and an atrial lead advanced to a secure position within the right atrial appendage. The lead was actively fixed. Thresholds were checked and deemed to be satisfactory. Adequate sensing was assured. There was no phrenic nerve stimulation with maximum output pacing. Next after adequate slack was assured and the atrial and ventricular leads the leads were secured within the device pocket using the designated cuffs and interrupted stitches of 0 silk suture. The device pocket was then flushed with antibiotic solution. The atrial and pacing ICD ventricular leads were then attached to the dual-chamber pacing ICD generator. The device and redundant leads were then placed within the device pocket. The deep tissues were closed with interrupted stitches of 2-0 Vicryl. The skin incision was then closed with a single subcuticular stitch of 4-0 Vicryl. Several Steri-Strips were placed across the incision. A sterile Telfa dressing was then covered in a Tegaderm. The patient tolerated the procedure well without complication. He was returned to the holding area in stable condition. Findings The sensed R-wave was 9.7 mV. Ventricular lead pacing impedance was 433 ohms. Ventricular pacing threshold was 0.7 V at 0.40 ms. The sensed P-wave was 3.1 mV. Atrial lead pacing impedance was 719 ohms. Atrial pacing threshold was 0.8 V at 0.40 ms. Pacing mode DDD. Lower rate 60 beats). Upper tracking rate 140 bpm. Conclusion 1. Ischemic cardiomyopathy. 2. Successful placement of a dual-chamber pacing ICD for primary prevention. Recommendations 1. Follow-up site check in one week. 2. Follow-up device interrogation one month. <ELECTRONICALLY SIGNED> By: Christiano English MD, FACC 09/20/18 1603 1603 1603[facility] English MD, FAC /INF
== END | disposition home or self-care (01) ==
LOC: M.CL 08:14
PROVIDERS: Internal Medicine Cardiovascular Disease
DX: I25.5 Ischemic cardiomyopathy (principal); I25.10 Atherosclerotic heart disease of native coronary artery without angina pectoris; I25.2 Old myocardial infarction; I50.22 Chronic systolic (congestive) heart failure; Z98.52 Vasectomy status; Z79.01 Long term (current) use of anticoagulants; Z87.442 Personal history of urinary calculi; Z79.899 Other long term (current) drug therapy; Z87.19 Personal history of other diseases of the digestive system

== ENCOUNTER → 2020-05-27 | Outpatient (CLI) | payer OTHER, MEDICARE | LOC: M.RAD 11:40 | PROVIDERS: ATTEND Registered Nurse | DX: I47.2 Ventricular tachycardia (principal) ==

== ENCOUNTER → 2020-11-26 | Outpatient (CLI) | payer OTHER, MEDICARE ==
[2020-11-26 09:53] LABS: ALBUMIN 3.9 g/dL (3.4-5.0); DIRECT BILIRUBIN 0.2 mg/dL (<0.1-0.3); TOTAL BILIRUBIN 0.7 mg/dL (<0.1-1.0); TOTAL PROTEIN 7.5 g/dL (6.4-8.2)
== END ==
LOC: M.RAD 08:51
PROVIDERS: ATTEND Internal Medicine Cardiovascular Disease
DX: I25.5 Ischemic cardiomyopathy (principal); I50.42 Chronic combined systolic (congestive) and diastolic (congestive) heart failure; Z79.899 Other long term (current) drug therapy

== ENCOUNTER → 2020-12-10 | Outpatient (CLI) | payer OTHER, MEDICARE ==
--- NOTE | 2020-12-10 15:15 | 2DMMODE ---
[place] [address] 2 D/M-MODE ECHOCARDIOGRAM Name: GAGE DAVID Room: [facility]#: [id number] Admission: 12/10/20 Attend Phys: Tiffany Baum, Discharge: Date of : 51 Date of Service: 12/10/20 1515 Report #: [id number] THIS REPORT FOR: cc: Bryant Kelley MD, Justin MD Liston, Michael J. MD [facility] ~ APPROVED REPORT Study performed: 12/10/2020 10:57:09 EXAM: Comprehensive 2D, Doppler, and color-flow Echocardiogram Patient Location: Out-Patient BSA: 2.56 HR: 60 bpm BP: 128/84 mmHg Other Information Study Quality: Technically Limited Technically limited study due to body habitus. Indications Cardiomyopathy 2D Dimensions IVSd: 12.53 (7-11mm) LVOT Diam: 22.01 (18-24mm) LVDd: 60.94 mm PWd: 12.33 (7-11mm) Ascending Ao: 34.91 (22-36mm) LVDs: 51.53 (25-40mm) Aortic Root: 32.02 mm Volumes Left Atrial Volume (Systole) LA ESV Index: 23.10 mL/m2 Aortic Valve AoV Peak Bud.: 1.49 m/s AO Peak Gr.: 8.82 mmHg LVOT Max P.36 mmHg AO Mean Gr.: 5.32 mmHg LVOT Mean P.69 mmHg LVOT Max V: 0.92 m/s AO V2 VTI: 31.50 cm LVOT Mean V: 0.60 m/s ANTONY (VTI): 2.40 cm2 LVOT V1 VTI: 19.82 [place] [address] 2 D/M-MODE ECHOCARDIOGRAM Name: GAGE DAVID Room: [facility]#: [id number] Admission: 12/10/20 Attend Phys: Tiffany Baum, Discharge: Date of : 51 Date of Service: 12/10/20 1515 Report #: [id number] Mitral Valve MV Peak Gr.: 4.12 mmHg MV Mean Gr.: 1.10 mmHg E/A Ratio: 0.65 MV Decel. Time: 346.01 ms MV E Max Bud.: 0.54 m/s MV PHT: 100.34 ms MVA (PHT): 2.19 cm2 TDI E/Lateral E': 7.71 E/Medial E': 10.80 Medial E' Bud.: 0.05 m/s Lateral E' Bud.: 0.07 m/s Pulmonary Valve PV Peak Bud.: 1.03 m/s PV Peak Gr.: 4.25 mmHg Left Ventricle The left ventricle is normal size. Wall motion difficult to evaluate due to poor endocardial definition. There appears to the akinesis of the lateral wall. Inferior wall is not well visualized. Mild concentric left ventricular hypertrophy. Left ventricular systolic function is moderate to severely decreased. LVEF is 30-35%. Grade I - abnormal relaxation pattern. Right Ventricle The right ventricle is normal size. The right ventricular systolic function is normal. Atria The left atrium size is normal. The right atrium size is normal. Aortic Valve The aortic valve is normal in structure. No aortic regurgitation is present. There is no aortic valvular stenosis. Mitral Valve The mitral valve is normal in structure. Mild mitral regurgitation. No evidence of mitral valve stenosis. Tricuspid Valve The tricuspid valve is normal in structure. There is no tricuspid valve regurgitation noted. Pulmonic Valve The pulmonary valve is normal in structure. There [place] [address] 2 D/M-MODE ECHOCARDIOGRAM Name: GAGE DAVID Room: [facility]#: [id number] Admission: 12/10/20 Attend Phys: Tiffany Baum, Discharge: Date of : 51 Date of Service: 12/10/20 1515 Report #: [id number] valvular regurgitation. Great Vessels The aortic root is normal in size. IVC is normal in size and collapses >50% with inspiration. Pericardium There is no pericardial effusion. <Conclusion> The left ventricle is normal size. Mild concentric left ventricular hypertrophy. Left ventricular systolic function is moderate to severely decreased. LVEF is 30-35%. Grade I - abnormal relaxation pattern. Wall motion difficult to evaluate due to poor endocardial definition. There appears to the akinesis of the lateral wall. Inferior wall is not well visualized. Mild mitral regurgitation. IVC is normal in size and collapses >50% with inspiration. <ELECTRONICALLY SIGNED> By: Christiano English MD, FACC 12/10/20 1515 1515 1515 Christiano English MD, FACC /INF
== END ==
LOC: M.CRD 10:27
PROVIDERS: ATTEND Nurse Practitioner
DX: I34.0 Nonrheumatic mitral (valve) insufficiency (principal); I25.5 Ischemic cardiomyopathy

== ENCOUNTER → 2021-02-06 | Outpatient (CLI) | payer OTHER, MEDICARE ==
[~2021-02-06] MED LIST changes: +ADVAIR 250-501 EACH INH; +CARVEDILOL12.5 MG PO; +FOLIC ACID1 MG PO; +HYDROXYCHLOROQ200 M1 PO; +IMDUR 30 MG TAB30 M1 PO; +K-DUR 20 MEQ T20 MEQ PO; +METHOTREXATE 22.5 M1 PO; +PACERONE200 MG PO; +PROTONIX40 M2 PO; +TRUXIMA10 MG/1 ML IV
--- NOTE | 2021-02-14 07:40 | PF ---
[address] [address] PULMONARY FUNCTION REPORT Name: GAGE DAVID Room: [facility]#: [id number] Admission: 02/06/21 Attend Phys: Te Shi MD Discharge: Date of : 51 Report #: [id number] THIS REPORT FOR: cc: Bryant Kelley MD, Justin MD Pervez,Te WHITE ~ DATE OF VISIT: 02/06/2021 PULMONARY FUNCTION TEST The FEV1/FVC ratio is normal at 73% with an FVC decreased to 63%. The FEV1 is also decreased to 62%. The FEF 25-75 is decreased to 58%. After the administration of a bronchodilator, there is a 10% increase in the FVC, which is below criteria for reversibility. There is no significant change in any of the other values mentioned here. The patient's post-bronchodilator FEV1 is 2.46 liters. The flow volume loop is concave upwards. The total lung capacity is decreased to 74%. The residual volume is normal at 94%. The DLCO as adjusted for hemoglobin is decreased to 69%. IMPRESSION: 1. Moderate obstruction with some improvement after the administration of a bronchodilator, which is below criteria for reversibility. 2. There is mild restriction with a total lung capacity decreased to 74%. 3. The DLCO as adjusted for hemoglobin is decreased to 69%. <ELECTRONICALLY SIGNED> By: Te Shi MD 02/14/21 0740 11 [id number] Shi MD /eulalio
== END ==
LOC: M.PUL 01-23 08:12
PROVIDERS: ATTEND Internal Medicine Critical Care Medicine
DX: J44.9 Chronic obstructive pulmonary disease, unspecified (principal); I25.10 Atherosclerotic heart disease of native coronary artery without angina pectoris; R93.89 Abnormal findings on diagnostic imaging of other specified body structures; Z79.899 Other long term (current) drug therapy

== ENCOUNTER → 2021-02-11 | Outpatient (CLI) | payer OTHER, MEDICARE ==
[~2021-02-11] VITALS: Ht 182.9 cm; Wt 137.4 kg
[2021-02-11] VITALS (7 sets, daily range): BP systolic 117–155; BP diastolic 65–80
[2021-02-11 09:34] LABS: HEMATOCRIT 42.5 % (42.0-52.0); HEMOGLOBIN 14.1 gm/dL (14.0-18.0); MCHC 33.2 g/dL (28.0-37.0); MCV 93.3 fL (80.0-100.0); MPV 7.4 fl. (7.2-11.1); RBC 4.56 mil/uL (4.50-6.00); RDW-CV 15.6 % (10.5-14.5)
--- NOTE | 2021-02-11 09:37 | EKG ---
[place] [address] ELECTROCARDIOGRAM REPORT Name: GAEG DAVID Room: [facility]#: [id number] Admission: 02/11/21 Attend Phys: Christiano English, Discharge: Date of : 51 Date of Service: 02/11/21 0934 Report #: [id number] THIS REPORT FOR: //name// 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1955 Requested By: Christiano English Order Number: [id number] Reading MD: Christiano English Measurements Intervals [place] Rate: 53 P: 57 [place]: 191 QRS: 28 QRSD: 118 T: 98 QT: 502 QTc: 472 Interpretive Statements Sinus rhythm Nonspecific intraventricular conduction delay Low voltage, extremity leads Nonspecific T abnormalities, lateral leads Compared to ECG 09/20/2018 09:43:23 T-wave abnormality now present Electronically Signed On 02-11-2021 9:37:44 CDT by Christiano English [email or web address] <ELECTRONICALLY SIGNED> By: Christiano English MD, FACC 02/11/2137 3 3 Christiano English MD, FAC /EPI
[2021-02-11 09:47] LABS: ALBUMIN 3.7 g/dL (3.4-5.0); ALKALINE PHOSPHATASE 109 U/L (46-116); ANION GAP 9 mmol/L (7-16); BUN 18 mg/dL (7-18); CHLORIDE 106 mmol/L (98-107); CHOLESTEROL 142 mg/dL (<200); CO2 28 mmol/L (21-32); CREATININE 1.4 mg/dL (0.6-1.3); GLUCOSE 114 mg/dL (70-99); HDL CHOLESTEROL 69 mg/dL (>40); LDL CHOLESTEROL 56 mg/dL (<100); POTASSIUM 4.1 mmol/L (3.5-5.1); SERUM ASSESSMENT Clear; SGOT 21 U/L (15-37); SGPT 45 U/L (30-65); SODIUM 143 mmol/L (136-145); TC:HDL 2.1 Ratio (Not establshd); TOTAL BILIRUBIN 0.7 mg/dL (<0.1-1.0); TOTAL PROTEIN 7.4 g/dL (6.4-8.2); TRIGLYCERIDE 89 mg/dL (<150); VLDL 18 mg/dL (<40)
[2021-02-11 10:32] LABS: APTT 38.4 Seconds (25.0-31.3); PROTIME 10.3 Seconds (9.20-11.50)
--- NOTE | 2021-02-11 16:10 | CARD ---
[address] [address] CARDIAC CATH REPORT Name: GAGE DAVID Room: [facility] JOYCE SevillaNickolas#: [id number] Admission: 02/11/21 Attend Phys: Christiano English MD Discharge: Date of : 51 Report #: [id number] THIS REPORT FOR: cc: Bryant Kelley MD, Justin MD Liston, Michael J. MD [facility] ~ APPROVED REPORT Study performed: 02/11/2021 10:31:18 Patient Details Patient Status: Out-Patient Room #: The patient is a 65 year-old male Event Personnel Dr English, Piyush Dixon RN, Bassam CAGE, Lety Oliveira RTR Procedures Performed Left heart cath with LV gram and coronary angiography. Indication CHF Current Status: Yes , Evaluation prior to possible coronary artery bypass grafting. Risk Factors Dysplipidemia , Coronary Artery DiseaseHypertension, Tobacco History () Procedure Narrative The patient was brought electively to the Cardiac Catheterization Laboratory and was prepped and draped in a sterile manner. The right femoral was infiltrated with 2% Lidocaine subcutaneous anesthesia. IV conscious sedation was used throughout procedure with appropriate monitoring and was performed in the presence of a registered nurse who was an independent trained observer other than the physician performing the procedure. A [place] 6 FR sheath was inserted into the right femoral artery. Coronary angiography was performed using coronary diagnostic catheters. The right coronary system was accessed and visualized with a Diagnostic JR4 6Fr catheter. The left coronary system was accessed and visualized with a Diagnostic JL4 6Fr catheter. The left ventricle was accessed and visualized with a Diagnostic Pigtail 6Fr catheter. Left ventricular/[place] [address] CARDIAC CATH REPORT Name: GAGE DAVID Room: [facility]#: [id number] Admission: 02/11/21 Attend Phys: Christiano English MD Discharge: Date of : 51 Report #: [id number] gradient assessed via catheter pullback. Left ventriculogram was performed in RIZZO projection. Pre-demployment femoral angiogram was performed in RIZZO. Closure device was deployed with a 6 Fr Mynx. The patient tolerated the procedure well and there were no complications associated with the procedure. There was no hematoma. Intraoperative Conscious Sedation Sedation start time: 1030 Case end Time: 1040 Fentanyl 50.0 mcg Versed 2.0 mg Fluoro Time: 1.1 minutes Dose: DAP 42042 cGycm2 1304 mGy Contrast Type and Amount: Visipaque 90 mL Coronary Angiography The patient's coronary anatomy is co- dominant. Diagnostic Cath Left Main The left main coronary artery is free of significant disease and bifurcates into a left anterior descending and circumflex coronary artery. LAD There is mild diffuse plaquing of the proximal to mid left into descending coronary artery. The distal LAD wraps around the apex and serves the inferior wall. Diagonal 1 The small first diagonal branch is free of significant disease. Diagonal 2 A moderate size second obtuse marginal branch is free of significant disease. Circumflex The circumflex coronary artery is totally occluded in its midportion after the takeoff of a small obtuse marginal branch. OM1 The first obtuse marginal branch is diffusely moderately plaqued. OM2 A large and branched second obtuse marginal branch fills by left to left collaterals. OM3 A large third obtuse marginal branch fills by left to left collaterals. Right Coronary The right coronary artery is totally occluded proximally and fills in the mid and distal portion by right to left and left to left collaterals. R PDA The right PDA is faintly visualized by right to right and left right collaterals. RPLV The right posterior lateral LV branch is faintly visualized by right to right and [place] [address] CARDIAC CATH REPORT Name: GAGE DAVID Room: [facility]#: [id number] Admission: 02/11/21 Attend Phys: Christiano English MD Discharge: Date of : 51 Report #: [id number] Left Ventriculography The left ventricle is moderately dilated in size with Decreased contractility. The left ventricular ejection fraction is estimated to be 15-20%. Left ventricular wall motion abnormalities are present. There is global hypokinesis with akinesis of the basal to mid inferior wall noted. Hemodynamics The aortic pressure is 111/52 mmHg with a mean of 59 mmHg. The left ventricular pressure is 114/12 mmHg with a mean of 20 mmHg. The left ventricular end diastolic pressure is 19 mmHg. Conclusion 1. Severe two-vessel coronary artery disease as outlined above. 2. Severe left ventricular systolic dysfunction with wall motion abnormalities as outlined above. 3. Mildly elevated left ventricular end-diastolic pressure. Recommendations 1. Continue aggressive risk factor modification. 2. Obtain viability study to see if revascularization would be beneficial. <ELECTRONICALLY SIGNED> By: Christiano English MD, FACC 02/11/21 1609 1609 [id number] English MD, FACC /INF
--- NOTE | 2021-02-13 08:13 | H ---
[place] [address] HISTORY AND PHYSICAL Name: GAGE DAVID Room: [facility] SUKUMAR Di.#: [id number] Admission: 02/11/21 Attend Phys: Christiano English MD Discharge: Date of : 51 Report #: [id number] THIS REPORT FOR: cc: Bryant Kelley MD, Bryant English,Christiano Rizvi MD [facility] ~ cc: Bryant Kelley DATE OF SERVICE: 02/11/2021 CARDIOLOGY ADMISSION HISTORY AND PHYSICAL INDICATION: Ischemic cardiomyopathy, coronary artery disease. HISTORY OF PRESENT ILLNESS: The patient is a very pleasant 65-year-old gentleman with longstanding cardiomyopathy. He is status post ICD placement for primary prevention. Recently, he has been having some ventricular arrhythmias for which he has been paced out of. He has not received any discharges from his defibrillator. His primary complaint is dyspnea on exertion and orthopnea. He is not having harjeet chest pain. Recent stress testing showed partially reversible lateral wall and fixed inferior wall defects with an ejection fraction at rest of 30%. The patient presents for coronary angiography for possible preoperative evaluation. PAST MEDICAL HISTORY: 1. Coronary artery disease with previous myocardial infarction. 2. Ischemic cardiomyopathy. 3. Mixed hyperlipidemia. 4. Paroxysmal atrial fibrillation without recurrence. 5. Chronic combined heart failure. 6. Chronic anticoagulation. 7. Status post ICD placement for primary prevention. 8. Hypertension. 9. Episodes of ventricular tachycardia. SOCIAL HISTORY: The patient is a daily smoker. He does not drink alcohol. FAMILY HISTORY: Noncontributory. REVIEW OF SYSTEMS: A 14-point review of systems positive for cough, shortness of breath and joint pain as well as some lightheadedness and dizziness. CURRENT MEDICATIONS: Atorvastatin 40 mg p.o. daily, carvedilol 12.5 mg p.o. b.i.d., Multaq 400 mg p.o. b.i.d., Advair inhaler 1 puff twice daily, folate 1 mg daily, Lasix 40 mg daily, Plaquenil 200 mg b.i.d., Imdur 30 mg daily, losartan 50 mg daily, methotrexate 2.5 mg daily, Protonix 40 mg daily, [place] [address] HISTORY AND PHYSICAL Name: GAGE DAVID Room: [facility]#: [id number] Admission: 02/11/21 Attend Phys: Christiano English MD Discharge: Date of : 51 Report #: [id number] infusion as directed, Xarelto 20 mg daily. ALLERGIES: None documented. PHYSICAL EXAMINATION: VITAL SIGNS: Stable. Blood pressure 124/68, pulse is 56 and regular. GENERAL: This is a pleasant gentleman who is in no distress. Mood and affect appropriate. HEENT: Extraocular muscles intact. Mucous membranes moist. CHEST: Reveals diminished breath sounds without wheezes or rales. CARDIAC: Reveals a regular rhythm without gallop or murmur. ABDOMEN: Reveals normal bowel sounds. Abdomen is soft and nontender. EXTREMITIES: Shows no edema. SKIN: Dry. IMPRESSION AND RECOMMENDATIONS: 1. Ischemic myopathy with progressive symptoms. Plan: Coronary angiography to evaluate for potential coronary artery bypass grafting. We will need viability study as well. 2. Coronary artery disease. The patient is not on aspirin as he is anticoagulated for atrial fibrillation. His anticoagulation has been held. Presently, continuing risk factor modification. 3. Hyperlipidemia, at goal on current dose of atorvastatin. 4. Paroxysmal atrial fibrillation, no significant recurrence at this time. 5. Chronic combined heart failure, presently compensated. 6. Chronic anticoagulation. The patient is tolerating anticoagulation without bleeding issues. 7. ICD in place for primary prevention. 8. Hypertension. Blood pressure adequately controlled. <ELECTRONICALLY SIGNED> By: Christiano English MD, FACC 02/13/21 0813 0821 [id number] English MD, FACC /nt
== END | disposition home or self-care (01) ==
LOC: M.CL 01-30 10:00
PROVIDERS: ATTEND Internal Medicine Cardiovascular Disease
DX: I25.10 Atherosclerotic heart disease of native coronary artery without angina pectoris (principal); I11.0 Hypertensive heart disease with heart failure; I50.40 Unspecified combined systolic (congestive) and diastolic (congestive) heart failure; I48.0 Paroxysmal atrial fibrillation; E78.2 Mixed hyperlipidemia; I25.5 Ischemic cardiomyopathy; F17.210 Nicotine dependence, cigarettes, uncomplicated; Z98.890 Other specified postprocedural states; Z79.899 Other long term (current) drug therapy; Z79.01 Long term (current) use of anticoagulants; Z98.52 Vasectomy status; Z87.442 Personal history of urinary calculi; Z20.822 Contact with and (suspected) exposure to COVID-19